=== PATIENT | female | born 1930 | race Caucasian/White ===

== ENCOUNTER 2018-12-04 07:53 | Emergency (ER) | payer MEDICARE, BC ==
--- NOTE | 2018-12-04 08:05 | EDM.PDOC ---
ED HPI GENERAL MEDICAL PROBLEM - General Chief Complaint: Lower Extremity Injury/Pain Stated Complaint: POSSIBLE BLOOD CLOT IN RIGHT LEG Time Seen by Provider: 12/04/18 08:00 - History of Present Illness INITIAL COMMENTS - FREE TEXT/NARRATIVE: HISTORY AND PHYSICAL: History of present illness: Patient's an 88-year-old white female with history of atrial fibrillation presents with concern of right calf pain and concern of possible deep venous thrombosis there is no significant swelling she's had some mild discomfort there she is on eliquis for atrial fibrillation she denies history of DVT PE or other concern. Review of systems: As per history of present illness and below otherwise all systems reviewed and negative. Past medical history: As per history of present illness and as reviewed below otherwise noncontributory. Surgical history: As per history of present illness and as reviewed below otherwise noncontributory. Social history: No reported history of drug or alcohol abuse. Family history: As per history of present illness and as reviewed below otherwise noncontributory. Physical exam: HEENT: Atraumatic, normocephalic, pupils reactive, negative for conjunctival pallor or scleral icterus, mucous membranes moist, throat clear, neck supple, nontender, trachea midline. Lungs: Clear to auscultation, breath sounds equal bilaterally, chest nontender. Heart: S1S2, irregularly irregular, negative for clicks, rubs, or JVD. Abdomen: Soft, nondistended, nontender. Negative for masses or hepatosplenomegaly. Negative for costovertebral tenderness. Pelvis: Stable nontender. Genitourinary: Deferred. Rectal: Deferred. Extremities: Atraumatic, negative for cords or calf pain. Neurovascular unremarkable. Neuro: Awake, alert, oriented. Cranial nerves II through XII unremarkable. Cerebellum unremarkable. Motor and sensory unremarkable throughout. Exam nonfocal. Diagnostics: Venous Doppler right lower extremity Therapeutics: None Impression: #1 right leg pain #2 medical screening exam Definitive disposition and diagnosis as appropriate pending reevaluation and review of above. Right Lower Leg Pain Score (Numeric/FACES): 8 - Related Data Allergies Allergy/AdvReac Type Severity Reaction Status Date / Time No Known Allergies Allergy Verified 12/04/18 07:59 Home Meds: Home Meds Apixaban [Eliquis] 5 mg PO BID 05/05/14 [History] Rosuvastatin [Crestor] 10 mg PO BEDTIME 05/05/14 [History] Metoprolol Succinate [Toprol XL] 25 mg PO BEDTIME 11/03/14 [History] Docusate Sodium [Dulcolax Stool Softener] 1 cap PO DAILY 01/28/18 [History] Furosemide [Lasix] 1 tab PO DAILY 01/28/18 [History] Lutein/Minerals/Vit A,C & E [Ocuvite] 1 tab PO DAILY 01/28/18 [History] MV,Ca,Min/Iron/FA/Guarana/Caff [One Daily Energy Tablet] 1 tab PO DAILY [History] Non-Formulary Medication [NF Drug] 1 cap PO DAILY 01/28/18 [History] [place]-3/DHA/Epa/Fish Oil [[place]-3 Fish Oil 1,000 MG Sfgl] 1,000 mg PO DAILY [History] Past Medical History HEENT History: Reports: Cataract Cardiovascular History: Reports: CAD, Heart Failure, Hypertension, [place], Pacemaker Respiratory History: Reports: None Gastrointestinal History: Reports: GERD, Hemorrhoids, Other (See Below) Other Gastrointestinal History: acid reflux Genitourinary History: Reports: None [employer]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: Musculoskeletal History: Reports: Arthritis, Back Pain, Chronic Neurological History: Reports: None Psychiatric History: Reports: None Endocrine/Metabolic History: Reports: None Hematologic History: Reports: None Immunologic History: Reports: None Oncologic (Cancer) History: Reports: None Dermatologic History: Reports: Eczema Other Dermatologic History: exzema - Past Surgical History Cardiovascular Surgical History: Reports: Coronary Artery Bypass Respiratory Surgical History: Reports: None GI Surgical History: Reports: Cholecystectomy Female Surgical History: Reports: Section Social & Family History - Family History Family Medical History: Noncontributory - Caffeine Use Caffeine Use: Reports: None - Living Situation & Occupation Living situation: Reports: , with Family Occupation: Retired Review of Systems - Review of Systems Review Of Systems: ROS reveals no pertinent complaints other than HPI. ED EXAM, GENERAL - Physical Exam Exam: See Below (See dictation) Course - Vital Signs Last Recorded V/S: Last Vital Signs Temp 35.5 C 12/04/18 07:57 Pulse 110 H 12/04/18 07:57 Resp 17 12/04/18 07:57 BP 116/69 12/04/18 07:57 Pulse Ox 94 L 12/04/18 08:00 Departure - Departure Time of Disposition: 08:03 Disposition: Home, Self-Care 01 Condition: Good Clinical Impression: Leg pain, Encounter for medical screening examination - Discharge Information Referrals: Kalyan Thorne MD [Primary Care Provider] - Additional Instructions: The following information is given to patients seen in the emergency department who are being discharged to home. This information is to outline your options for follow-up care. We provide all patients seen in our emergency department with a follow-up referral. The need for follow-up, as well as the timing and circumstances, are variable depending upon the specifics of your emergency department visit. If you don't have a primary care physician on staff, we will provide you with a referral. We always advise you to contact your personal physician following an emergency department visit to inform them of the circumstance of the visit and for follow-up with them and/or the need for any referrals to a consulting specialist. The emergency department will also refer you to a specialist when appropriate. This referral assures that you have the opportunity for followup care with a specialist. All of these measure are taken in an effort to provide you with optimal care, which includes your followup. Under all circumstances we always encourage you to contact your private physician who remains a resource for coordinating your care. When calling for followup care, please make the office aware that this follow-up is from your recent emergency room visit. If for any reason you are refused follow-up, please contact the [facility] emergency department at and asked to speak to the emergency department charge nurse. Follow-up primary medical doctor as discussed continue current medications return as needed as discussed
--- NOTE | 2018-12-04 08:44 | US ---
INDICATION: Right calf pain. TECHNIQUE: Ultrasound venous duplex lower right extremity. Compression venous exam was performed using french-scale, color Doppler, and spectral Doppler imaging. COMPARISON: None. FINDINGS: Sonographic imaging demonstrates the right common femoral, deep femoral, superficial femoral, popliteal, posterior tibial, anterior tibial, peroneal and greater saphenous and the contralateral left common femoral veins to be fully compressible with normal color Doppler blood flow. Remainder negative. IMPRESSION: Normal right lower extremity venous ultrasound without evidence of DVT. Dictated by Ilia Clarke MD @ Dec 04 2018 8:36AM Signed by Dr. Ilia Clarke @ Dec 04 2018 8:42AM
[2018-12-04 09:04] VITALS: BP 92/77
== END 2018-12-04 08:59 | disposition home or self-care (01) ==
LOC: MW.ED 07:53
DX: M79.604 Pain in right leg (principal); I11.0 Hypertensive heart disease with heart failure; I50.9 Heart failure, unspecified; Z79.01 Long term (current) use of anticoagulants; Z79.899 Other long term (current) drug therapy; Z95.0 Presence of cardiac pacemaker
CPT/HCPCS: 93971-26-RT; 93971-RT; 99282; 99283-25

== ENCOUNTER 2019-05-11 10:25 | Emergency (ER) | payer MEDICARE, BC ==
--- NOTE | 2019-05-11 11:16 | EDM.PDOC ---
ED HPI GENERAL MEDICAL PROBLEM - General Chief Complaint: Chest Pain Stated Complaint: CHEST PAIN/HEART PROBLEMS Time Seen by Provider: 05/11/19 10:27 Source of Information: Reports: Patient, Family History Limitations: Reports: No Limitations - History of Present Illness INITIAL COMMENTS - FREE TEXT/NARRATIVE: HISTORY OF PRESENT ILLNESS: Patient is a 88 year old female with history of CHF , CABG x 2, Afib s/p pacer who presents to ED with complaints of a "funny feeling" across her anterior chest 2 nights ago. She denies having any chest pain, only an usual sensation. States she was concerned she had passed out when she had the feeling and tried to feel her pulse (but felt skin overlying her trachea) and was concerned as she couldn't feel her pulse there. She checked her BP and states it was "low" at SBP of 107. She had chest pain again last night when she rolled over on her left side, no pain since. No dyspnea. No weakness/numbness. No blurred vision or changes in speech. No leg pain or swelling. No rash. No abdominal pain. No diaphoresis. Pt is on Eliquis REVIEW OF SYSTEMS: Other than the symptoms associated with the present events, the following is reported with regard to recent health: General: (-) fever. HENT: (-) congestion. Respiratory: (-) cough. Cardiovascular: (-) palpitations GI: (-) abdominal pain. : (-) urinary complaints. Musculoskeletal: (-) other aches or pains. Endocrine: (-) generalized weakness. Neurological: (-) localized weakness. Skin: denies rash PAST MEDICAL HISTORY: reviewed as per nursing notes SOCIAL HISTORY: reviewed as per nursing notes, MEDICATIONS: Per nurse's note ALLERGIES: Per nurse's note, reviewed by me PHYSICAL EXAMINATION: GENERALIZED APPEARANCE: well developed, well nourished in no distress VITAL SIGNS: Per nurse's note, reviewed by me SKIN: Warm, dry; (-) cyanosis; (+) faint redness left lateral chest but no overlying vesicles and no TTP. incisional scar chest HEAD: (-) scalp swelling, (-) tenderness. EYES: (-) conjunctival pallor, (-) scleral icterus. ENMT: (-) stridor; mucous membranes moist. NECK: (-) tenderness, (-) stiffness, CHEST AND RESPIRATORY: (-) rales, (-) rhonchi, (-) wheezes; breath sounds equal bilaterally. HEART AND CARDIOVASCULAR: (-) irregularity; (-) murmur, (-) gallop. ABDOMEN AND GI: Soft; (-) tenderness, (-) guarding, (-) rebound, (-) palpable masses, EXTREMITIES: (-) deformity, (-) edema. NEURO AND PSYCH: Alert. Cranial nerves grossly intact; strength symmetric. gait steady DIAGNOSTICS: EKG:paced at 92 bpm. no acute changes. CXR: read by radiologist, reviewed by myself CT: read by radiologist, reviewed by myself Labs ordered and reviewed EMERGENCY DEPARTMENT COURSE AND TREATMENT: Patient's condition remained stable during Emergency Department evaluation. Troponin noted to be 0.083. BUN/Cr of 27/1.4 . BNP 378. Pt on Eliquis, ASA not given. K noted and replaced Pt's performance improvement specialist (Dr. Marcus) is at [facility]. Pt requests transfer to this facility. Case d/w Dr. Hoyos who kindly agrees to accept transfer PLAN AND FOLLOW-UP: Transfer to [facility]. - Related Data Allergies Allergy/AdvReac Type Severity Reaction Status Date / Time No Known Allergies Allergy Verified 05/11/19 10:42 Home Meds: Home Meds Apixaban [Eliquis] 5 mg PO BID 05/05/14 [History] Rosuvastatin [Crestor] 10 mg PO BEDTIME 05/05/14 [History] Metoprolol Succinate [Toprol XL] 25 mg PO BEDTIME 11/03/14 [History] Docusate Sodium [Dulcolax Stool Softener] 1 cap PO DAILY 01/28/18 [History] Furosemide [Lasix] 1 tab PO DAILY 01/28/18 [History] Lutein/Minerals/Vit A,C & E [Ocuvite] 1 tab PO DAILY 01/28/18 [History] MV,Ca,Min/Iron/FA/Guarana/Caff [One Daily Energy Tablet] 1 tab PO DAILY [History] Non-Formulary Medication [NF Drug] 1 cap PO DAILY 01/28/18 [History] [place]-3/DHA/Epa/Fish Oil [[place]-3 Fish Oil 1,000 MG Sfgl] 1,000 mg PO DAILY [History] Past Medical History HEENT History: Reports: Cataract Cardiovascular History: Reports: CAD, Heart Failure, Hypertension, [place], Pacemaker Respiratory History: Reports: None Gastrointestinal History: Reports: GERD, Hemorrhoids, Other (See Below) Other Gastrointestinal History: acid reflux Genitourinary History: Reports: None 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: Musculoskeletal History: Reports: Arthritis, Back Pain, Chronic Neurological History: Reports: None Psychiatric History: Reports: None Endocrine/Metabolic History: Reports: None Hematologic History: Reports: None Immunologic History: Reports: None Oncologic (Cancer) History: Reports: None Dermatologic History: Reports: Eczema Other Dermatologic History: exzema - Infectious Disease History Infectious Disease History: Reports: None - Past Surgical History Cardiovascular Surgical History: Reports: Coronary Artery Bypass Respiratory Surgical History: Reports: None GI Surgical History: Reports: Cholecystectomy Female Surgical History: Reports: Section Social & Family History - Family History Family Medical History: Noncontributory - Tobacco Use Smoking Status *Q: Never Smoker - Caffeine Use Caffeine Use: Reports: None - Recreational Drug Use Recreational Drug Use: No - Living Situation & Occupation Living situation: Reports: , with Family Occupation: Retired ED ROS GENERAL - Review of Systems Review Of Systems: See Below (see dictation) ED EXAM, GENERAL - Physical Exam Exam: See Below (see dictation) Course - Vital Signs Last Recorded V/S: Last Vital Signs Temp 97.2 F 05/11/19 10:42 Pulse 60 05/11/19 12:45 Resp 18 05/11/19 12:45 BP 123/69 05/11/19 12:45 Pulse Ox 96 05/11/19 12:45 - Orders/Labs/Meds Orders: Active Orders 24 hr Category Date Time Status Cardiac Monitoring [RC] . DIRECTED Care 05/11/19 10:44 Active EKG Documentation Completion [RC] STAT Care 05/11/19 10:43 Active Vital Signs [RC] PER UNIT ROUTINE Care 05/11/19 11:16 Active Labs: Laboratory Tests 05/11/19 05/11/19 05/11/19 Range/Units 10:30 10:30 10:30 WBC 5.62 (4.0-11.0) K/uL RBC 4.30 (4.30-5.90) M/uL Hgb 12.7 (12.0-16.0) g/dL Hct 39.1 (36.0-46.0) % MCV 90.9 (80.0-98.0) fL MCH 29.5 (27.0-32.0) pg MCHC 32.5 (31.0-37.0) g/dL RDW Std Deviation 50.3 (28.0-62.0) fl RDW Coeff of [place] 15 (11.0-15.0) % Plt Count 216 (150-400) K/uL MPV 9.90 (7.40-12.00) fL Neut % (Auto) 55.3 (48.0-80.0) % Lymph % (Auto) 34.7 (16.0-40.0) % [place] % (Auto) 8.7 (0.0-15.0) % Eos % (Auto) 1.1 (0.0-7.0) % Baso % (Auto) 0.2 (0.0-1.5) % Neut # (Auto) 3.1 (1.4-5.7) K/uL Lymph # (Auto) 2.0 (0.6-2.4) K/uL [place] # (Auto) 0.5 (0.0-0.8) K/uL Eos # (Auto) 0.1 (0.0-0.7) K/uL Baso # (Auto) 0.0 (0.0-0.1) K/uL Nucleated RBC % 0.0 /100WBC Nucleated RBCs # 0 K/uL Sodium 143 (136-145) mmol/L Potassium 3.3 L (3.5-5.1) mmol/L Chloride 104 (98-107) mmol/L Carbon Dioxide 28.5 (21.0-32.0) mmol/L BUN 27 H (7.0-18.0) mg/dL Creatinine 1.4 H (0.6-1.0) mg/dL Est Cr Clr Drug Dosing 25.50 mL/min Estimated GFR (MDRD) 35.4 ml/min Glucose 114 H (74-106) mg/dL Calcium 9.2 (8.5-10.1) mg/dL Total Bilirubin 1.0 (0.2-1.0) mg/dL AST 17 (15-37) IU/L ALT 15 (14-63) IU/L Alkaline Phosphatase 88 (46-116) U/L Troponin I 0.083 H* (0.000-0.056) ng/mL B-Natriuretic Peptide 378 H (<100) PG/ML Total Protein 8.0 (6.4-8.2) g/dL Albumin 3.9 (3.4-5.0) g/dL Globulin 4.1 H (2.6-4.0) g/dL Albumin/Globulin Ratio 1.0 (0.9-1.6) Meds: Medications Discontinued Medications Generic Name Dose Route Start Last Admin Trade Name Freq PRN Reason Stop Dose Admin Potassium Chloride 40 meq 05/11/19 11:41 05/11/19 11:54 Klor-Con M20 PO 05/11/19 11:42 40 meq ONETIME ONE Administration Departure - Departure Time of Disposition: 12:01 Disposition: DC/Tfer to Acute Hospital 02 Condition: Good Clinical Impression: Chest pain, Elevated troponin - Discharge Information Referrals: Kalyan Thorne MD [Primary Care Provider] - Forms: ED Department Discharge Sepsis Event Note - Evaluation Sepsis Screening Result: No Definite Risk - Focused Exam Vital Signs: Vital Signs Temp Pulse Resp BP Pulse Ox 05/11/19 12:45 60 18 123/69 96 05/11/19 12:00 71 18 100/63 98 05/11/19 11:55 65 18 99/72 96 05/11/19 10:42 97.2 F 81 18 139/80 89 L Date Exam was Performed: 05/11/19 Time Exam was Performed: 13:17 - My Orders Last 24 Hours: My Active Orders 05/11/19 10:43 EKG Documentation Completion [RC] STAT 05/11/19 10:44 Cardiac Monitoring [RC] . DIRECTED 05/11/19 11:16 Vital Signs [RC] PER UNIT ROUTINE - Assessment/Plan Last 24 Hours: My Active Orders 05/11/19 10:43 EKG Documentation Completion [RC] STAT 05/11/19 10:44 Cardiac Monitoring [RC] . DIRECTED 05/11/19 11:16 Vital Signs [RC] PER UNIT ROUTINE
[2019-05-11 11:21] LABS: CARBON DIOXIDE,CO2 28.5 mmol/L (21.0-32.0); POTASSIUM,K 3.3 mmol/L (3.5-5.1)
--- NOTE | 2019-05-11 11:34 | CT ---
Head CT Technique: Multiple axial sections through the brain were obtained. Intravenous contrast was not utilized. Comparison: Prior head CT study of 01/28/18. Findings: Ventricles along with basal cisterns and sulci over the convexities are mildly prominent. Prominent hyperostosis interna frontalis is seen. Calcification is seen within the posterior fossa near the transverse sinus which is a stable finding and is felt to be incidental. Diminished density is noted within portions of the periventricular white matter which is most likely due to small vessel ischemic demyelination change. No other abnormal parenchymal densities are seen. No evidence of intracranial hemorrhage. No midline shift or mass effect is identified. Bone window settings shows no acute calvarial abnormality. Mastoid sinuses shows nothing acute. Visualized paranasal sinuses also show nothing acute. Impression: 1. Senescent change as described above. 2. No acute intracranial abnormality is identified. Diagnostic code #2 This report was dictated in [place] Standard Time
[2019-05-11] MEDS ORDERED: Potassium Chloride 20 MEQ Tab.ER PO ONE (11:41)
--- NOTE | 2019-05-11 11:53 | CR ---
Chest: Frontal view of the chest was obtained. Comparison: Prior chest x-ray of 01/28/18. Heart size is mildly enlarged. Tortuous thoracic aorta is seen. Pacemaker is noted. Prior sternotomy is seen. Sternotomy for prior CABG. Lungs are clear with no acute parenchymal change. Surgical clips are seen from prior cholecystectomy. Impression: 1. Findings as noted above. 2. Nothing acute is appreciated. Diagnostic code #2 This report was dictated in [place] Standard Time
[2019-05-11 13:03] VITALS: BP 123/69; PULSE 60
== END 2019-05-11 12:45 ==
LOC: MW.ED 10:25
DX: R07.9 Chest pain, unspecified (principal); R79.89 Other specified abnormal findings of blood chemistry; I25.10 Atherosclerotic heart disease of native coronary artery without angina pectoris; I25.2 Old myocardial infarction; I11.0 Hypertensive heart disease with heart failure; I50.9 Heart failure, unspecified; Z95.0 Presence of cardiac pacemaker
CPT/HCPCS: 36415; 70450; 71045; 80053; 83880; 84484; 85025; 93005; 99285; A9270